=== PATIENT | male | born 1965 | race Caucasian/White ===

== ENCOUNTER 2022-01-16 10:38 | Outpatient (CLI) | payer BC ==
[2022-01-16 12:33] LABS: Hemoglobin 15.6 g/dL (13.5-17.5); Mean Corpuscular HGB CONC 33.1 g/dL (32.0-36.0); Mean Corpuscular Hemoglobin 27.9 pg (27.0-33.0); Mean Corpuscular Volume 84.4 fl (81.2-95.1); Mean Platelet Volume 10.4 fl (7.4-10.4); Platelet Count 254 10x3/uL (150-450); RBC Distribution Width 14.4 % (11.5-14.5); Red Blood Cell (RBC) Count 5.59 10x6/uL (4.32-5.72)
== END 2022-01-16 10:39 | disposition home or self-care (01) ==
LOC: CSHLAB 10:38
PROVIDERS: ATTEND Surgery
DX: Z01.818 Encounter for other preprocedural examination (principal); Z20.822 Contact with and (suspected) exposure to COVID-19
CPT/HCPCS: 85027; 87811; 93005; 93010

== ENCOUNTER 2022-01-19 07:09 | Day surgery (SDC) | payer BC ==
[2022-01-18 11:48] VITALS: BMI 36.0
[2022-01-19] MEDS ORDERED: Lidocaine 1% MPF 2 ML VIAL ONE (07:53)
[2022-01-19] MEDS ORDERED: Bupivacaine PF 0.5% 30 ML VIAL ONE (08:47)
[2022-01-19] MEDS ORDERED: EPINEPHrine 1 MG/ML AMP ONE (08:47)
[2022-01-19] MEDS ORDERED: PROPOFOL 40 ML ONE (08:50)
[2022-01-19] MEDS ORDERED: Fentanyl 100 MCG/2 ML VIAL ONE (08:51)
[2022-01-19] MEDS ORDERED: HYDROcodone/Acetaminophen 5/325 mg Tablet PO PRN ×2 (08:54)
[2022-01-19] MEDS ORDERED: Acetaminophen 325 MG TAB PO PRN (08:54)
[2022-01-19] MEDS ORDERED: Ondansetron PF 4 MG/2 ML Vial ONE (08:55)
[2022-01-19] MEDS ORDERED: Lidocaine 2% PF 5 ML VIAL ONE (08:55)
[2022-01-19] MEDS ORDERED: Rocuronium Bromide 10 MG/ML (10ML VIAL) ONE (08:55)
[2022-01-19] MEDS ORDERED: Ketorolac Tromethamine 30 MG/ML VIAL ONE (08:55)
[2022-01-19] MEDS ORDERED: Dexamethasone 4 mg/ml Vial ONE (08:55)
[2022-01-19] MEDS ORDERED: SUGAMMADEX SODIUM 200 MG/2 ML VIAL ONE (08:57)
[2022-01-19] MEDS ORDERED: CEFAZOLIN 2 GM VIAL ONE (09:01)
[2022-01-19] MEDS ORDERED: Meperidine HCl/PF 25 MG/ML VIAL ONE (10:39)
== END 2022-01-19 11:55 | disposition home or self-care (01) ==
LOC: CSHSDC 07:09
PROVIDERS: ATTEND Surgery
PROC: 0YUA4JZ Supplement Bilateral Inguinal Region with Synthetic Substitute, Percutaneous Endoscopic Approach (ICD-10-PCS; principal; 2022-01-19)
DX: K40.91 Unilateral inguinal hernia, without obstruction or gangrene, recurrent (principal); K40.90 Unilateral inguinal hernia, without obstruction or gangrene, not specified as recurrent; K42.9 Umbilical hernia without obstruction or gangrene; I10 Essential (primary) hypertension; E78.5 Hyperlipidemia, unspecified; Z79.01 Long term (current) use of anticoagulants; Z79.899 Other long term (current) drug therapy; Z88.8 Allergy status to other drugs, medicaments and biological substances; Z98.890 Other specified postprocedural states
CPT/HCPCS: C1713; J0171; J0690; J1100; J1885; J2001; J2175; J2405; J2704; J3010; S0020